=== PATIENT | female | born 1955 | race Caucasian/White ===

== ENCOUNTER → 2017-05-05 | Outpatient (REF) | payer OTHER ==
[2017-05-05 15:04] LABS: ALBUMIN 4.2 GM/DL (3.2-5.2); ALBUMIN/GLOBULIN RATIO 1.35 (1.00-1.93); ALKALINE PHOSPHATASE 54 U/L (45-117); ALT/SGPT 23 U/L (12-78); ANION GAP 10 MEQ/L (8-16); AST/SGOT 18 U/L (15-37); BILIRUBIN,TOTAL 0.6 MG/DL (0.2-1.0); BLOOD UREA NITROGEN 14 MG/DL (7-18); CARBON DIOXIDE LEVEL 27 MEQ/L (21-32); CHLORIDE LEVEL 102 MEQ/L (98-107); CHOLESTEROL LEVEL 248 MG/DL (<200); GLOMERULAR FILTRATION RATE > 60.0 (>45); GLUCOSE, FASTING 98 MG/DL (80-110); POTASSIUM SERUM 4.3 MEQ/L (3.5-5.1); SODIUM LEVEL 139 MEQ/L (136-145); TOTAL PROTEIN 7.3 GM/DL (6.4-8.2); TRIGLYCERIDES LEVEL 110 MG/DL (<150)
== END ==
LOC: M SFHCLACO 09:22
PROVIDERS: ATTEND Physician Assistant
DX: E78.00 Pure hypercholesterolemia, unspecified (principal); I10 Essential (primary) hypertension; E55.9 Vitamin D deficiency, unspecified

== ENCOUNTER → 2017-05-14 | Outpatient (CLI) | payer OTHER ==
--- NOTE | 2017-05-14 08:52 | REP ---
Abdominal aorta ultrasound: Abdominal Aortic Measurements are as follows: Proximal 2.5 cm AP at 2.3 cm TRV Renal Artery Level 2.1 cm AP 2.1 cm TRV Mid Aorta 1.7 cm AP 1.9 cm TRV Distal Aorta 1.6 cm AP 1.7 cm TRV R Iliac Artery 0.96 cm AP 0.8 cm TRV L Iliac Artery 0.99 cm AP 0.97 cm TRV Impression: There is no abdominal aortic aneurysm. Signed by Kentrell Alanis MD 05/14/2017 08:44 A
== END ==
LOC: M RAD 07:43
PROVIDERS: ATTEND Physician Assistant
DX: Z00.00 Encounter for general adult medical examination without abnormal findings (principal)

== ENCOUNTER → 2018-01-12 | Outpatient (REF) | payer OTHER ==
[2018-01-12 15:15] LABS: ALBUMIN 4.4 GM/DL (3.2-5.2); ALBUMIN/GLOBULIN RATIO 1.19 (1.00-1.93); ALKALINE PHOSPHATASE 55 U/L (45-117); ALT/SGPT 19 U/L (12-78); ANION GAP 6 MEQ/L (8-16); AST/SGOT 23 U/L (7-37); BILIRUBIN,TOTAL 0.6 MG/DL (0.2-1.0); BLOOD UREA NITROGEN 17 MG/DL (7-18); CALCIUM LEVEL 9.8 MG/DL (8.8-10.2); CARBON DIOXIDE LEVEL 30 MEQ/L (21-32); CHLORIDE LEVEL 103 MEQ/L (98-107); CHOLESTEROL LEVEL 270 MG/DL (<200); CHOLESTEROL RISK RATIO 2.432 (<5); CREATININE FOR GFR 0.79 MG/DL (0.55-1.30); GLOMERULAR FILTRATION RATE > 60.0 (>45); GLUCOSE, FASTING 88 MG/DL (70-100); HDL CHOLESTEROL 111 MG/DL (>40); LDL CHOLESTEROL 145.2 MG/DL (<100); NON-HDL-C 159 MG/DL; POTASSIUM SERUM 4.4 MEQ/L (3.5-5.1); SODIUM LEVEL 139 MEQ/L (136-145); TOTAL PROTEIN 8.1 GM/DL (6.4-8.2); TRIGLYCERIDES LEVEL 69 MG/DL (<150)
[2018-01-12 15:20] LABS: TOTAL 25(OH) VITAMIN D 36.6 NG/ML (30.0-100.0)
== END ==
LOC: M SFHCLACO 08:10
DX: I10 Essential (primary) hypertension (principal); E78.00 Pure hypercholesterolemia, unspecified; E55.9 Vitamin D deficiency, unspecified
CPT/HCPCS: 80053

== ENCOUNTER → 2018-04-29 | Outpatient (REF) | payer OTHER ==
[2018-05-01 14:10] LABS: HPV HYBRID CAPTURE II Negative (Negative)
== END ==
LOC: M SFHCWAGY 08:48
DX: Z12.72 Encounter for screening for malignant neoplasm of vagina (principal)

== ENCOUNTER → 2018-04-29 | Outpatient (CLI) | payer OTHER | LOC: M WHC 08:33 | DX: Z12.31 Encounter for screening mammogram for malignant neoplasm of breast (principal) | CPT/HCPCS: 77067 ==

== ENCOUNTER → 2018-04-29 | Outpatient (CLI) | payer OTHER | LOC: M WHC 08:23 | DX: Z13.820 Encounter for screening for osteoporosis (principal); Z78.0 Asymptomatic menopausal state | CPT/HCPCS: 77080 ==

== ENCOUNTER → 2019-05-02 | Outpatient (CLI) | payer MEDICARE ==
--- NOTE | 2019-05-02 09:31 | REPMRS ---
Patient History The patient states she had a clinical breast exam in 04/2019. Patient has history of basal cell skin cancer at age 63. Family history of prostate cancer in father, breast cancer in paternal aunt, pancreatic cancer in paternal aunt. 3D TOMOSYNTHESIS WAS PERFORMED. The Emily Cochran lifetime risk for breast cancer is 9.2%. Digital Woman Screen Mammo: May 02, 2019 - Exam #: [id number] Bilateral CC and MLO view(s) were taken. Technologist: Belen Aragon, Technologist Prior study comparison: April 29, 2018, bilateral digital woman screen mammo performed at [facility]. April 08, 2016, digital woman screen mammo performed at [facility]. FINDINGS: The breast tissue is heterogeneously dense. This may lower the sensitivity of mammography. There has been no change in the appearance of the mammogram from the prior studies. There is a moderate amount of residual fibroglandular tissue which is fairly symmetric. There is no interval development of dominant mass, areas of architectural distortion, or clustered microcalcification typical of malignancy. Assessment: BI-RADS/ACR category 1 mammogram. Negative Mammogram. Recommendation Routine screening mammogram in 1 year (for women over age 40). This mammogram was interpreted with the aid of an FDA-approved computer-aided dectection system. Electronically Signed By: Kentrell Martinez MD 05/02/19 [id number]
== END ==
LOC: M WHC 08:26
PROVIDERS: ATTEND Nurse Practitioner Family
DX: Z01.419 Encounter for gynecological examination (general) (routine) without abnormal findings (principal); Z12.31 Encounter for screening mammogram for malignant neoplasm of breast; Z85.828 Personal history of other malignant neoplasm of skin; Z80.42 Family history of malignant neoplasm of prostate
CPT/HCPCS: 77063; 77067; G0101

== ENCOUNTER → 2020-06-29 | Outpatient (CLI) | payer MEDICARE ==
--- NOTE | 2020-06-29 10:14 | REPMRS ---
Patient History The patient states she had a clinical breast exam in June 2020.Family history of prostate cancer in father, breast cancer in paternal aunt, pancreatic cancer in paternal aunt. 3D TOMOSYNTHESIS WAS PERFORMED. The Emily Rutledge lifetime risk for breast cancer is 8.8%. Volpara breast density c. Digital Woman Screen Mammo: June 29, 2020 - Exam #: [id number] Bilateral CC and MLO view(s) were taken. Technologist: Yesica Hernandez, Technologist Prior study comparison: May 02, 2019, bilateral digital woman screen mammo performed at [facility]. April 29, 2018, bilateral digital woman screen mammo performed at [facility]. FINDINGS: The breast tissue is heterogeneously dense. This may lower the sensitivity of mammography. There has been no change in the appearance of the mammogram from the prior studies. There is a moderate amount of residual fibroglandular tissue which is fairly symmetric. There is no interval development of dominant mass, areas of architectural distortion, or clustered microcalcification typical of malignancy. Assessment: BI-RADS/ACR category 1 mammogram. Negative Mammogram. Recommendation Routine screening mammogram in 1 year (for women over age 40). This mammogram was interpreted with the aid of an FDA-approved computer-aided dectection system. Electronically Signed By: Kentrell Martinez MD 06/29/20 [id number]
== END ==
LOC: M WHC 08:41
PROVIDERS: ATTEND Nurse Practitioner Family
DX: Z12.31 Encounter for screening mammogram for malignant neoplasm of breast (principal); Z80.42 Family history of malignant neoplasm of prostate

== ENCOUNTER → 2021-04-19 | Outpatient (REF) | payer MEDICARE ==
[2021-04-19 16:31] LABS: BLOOD UREA NITROGEN 17 MG/DL (7-18); CREATININE FOR GFR 0.86 MG/DL (0.55-1.30); GLUCOSE, FASTING 137 MG/DL (70-100)
[2021-04-19 16:32] LABS: ALBUMIN 3.9 GM/DL (3.2-5.2); ALT/SGPT 27 U/L (12-78); BILIRUBIN,TOTAL 0.4 MG/DL (0.2-1.0); CARBON DIOXIDE LEVEL 30 MEQ/L (21-32); CHLORIDE LEVEL 105 MEQ/L (98-107); GLOMERULAR FILTRATION RATE > 60.0 (>45); SODIUM LEVEL 139 MEQ/L (136-145); TOTAL PROTEIN 7.3 GM/DL (6.4-8.2)
[2021-04-19 17:38] LABS: BASO % 0.5 % (0.0-1.0); EOS # 0.2 10^3/uL (0.0-0.5); HEMATOCRIT 37.3 % (36.0-47.0); HEMOGLOBIN 12.2 g/dl (12.0-15.5); LYMPH # 3.4 10^3/uL (1.5-5.0); LYMPH % 45.5 % (24.0-44.0); MEAN CORPUSCULAR HEMOGLOBIN 30.4 pg (27.0-33.0); MEAN CORPUSCULAR HGB CONC 32.7 g/dl (32.0-36.5); MONO # 0.4 10^3/uL (0.0-0.8); MONO % 5.8 % (2.0-8.0); NEUTROPHILS # 3.3 10^3/uL (1.5-8.5); NEUTROPHILS % 45.1 % (36.0-66.0); PLATELET COUNT, AUTOMATED 196 10^3/uL (150-450); RED BLOOD COUNT 4.01 10^6/uL (4.00-5.40); WHITE BLOOD COUNT 7.4 10^3/uL (4.0-10.0)
== END ==
LOC: M SFHCADAM 13:36
PROVIDERS: ATTEND Family Medicine
DX: Z01.818 Encounter for other preprocedural examination (principal); H26.9 Unspecified cataract

== ENCOUNTER → 2022-01-16 | Outpatient (REF) | payer MEDICARE ==
[2022-01-16 13:36] LABS: ALT/SGPT 20 U/L (12-78); BILIRUBIN,TOTAL 0.5 MG/DL (0.2-1.0); BLOOD UREA NITROGEN 17 MG/DL (7-18); CALCIUM LEVEL 10.4 MG/DL (8.8-10.2); CARBON DIOXIDE LEVEL 28 MEQ/L (21-32); CHLORIDE LEVEL 103 MEQ/L (98-107); CHOLESTEROL LEVEL 254 MG/DL (<200); CHOLESTEROL RISK RATIO 2.288 (<5); GLOMERULAR FILTRATION RATE > 60.0 (>45); GLUCOSE, FASTING 96 MG/DL (70-100); HDL CHOLESTEROL 111 MG/DL (>40); LDL CHOLESTEROL 128 MG/DL (<100); NON-HDL-C 143 MG/DL; POTASSIUM SERUM 4.5 MEQ/L (3.5-5.1); SODIUM LEVEL 139 MEQ/L (136-145); TOTAL 25(OH) VITAMIN D 47.2 NG/ML (30.0-100.0); TOTAL PROTEIN 7.4 GM/DL (6.4-8.2); TRIGLYCERIDES LEVEL 74 MG/DL (<150)
== END ==
LOC: M SFHCADAM 08:11
PROVIDERS: ATTEND Physician Assistant
DX: I10 Essential (primary) hypertension (principal); E78.00 Pure hypercholesterolemia, unspecified; E55.9 Vitamin D deficiency, unspecified; Z79.899 Other long term (current) drug therapy

== ENCOUNTER → 2022-01-22 | Outpatient (CLI) | payer MEDICARE | LOC: M ADAMS 09:13 | PROVIDERS: ATTEND Physician Assistant | DX: M79.644 Pain in right finger(s) (principal) ==

== ENCOUNTER → 2022-02-26 | Outpatient (CLI) | payer MEDICARE | LOC: M WHC 07:40 | PROVIDERS: ATTEND Physician Assistant | DX: Z12.31 Encounter for screening mammogram for malignant neoplasm of breast (principal) ==

== ENCOUNTER → 2023-03-02 | Outpatient (CLI) | payer MEDICARE | LOC: M WHC 09:15 | PROVIDERS: ATTEND Nurse Practitioner Family | DX: Z12.31 Encounter for screening mammogram for malignant neoplasm of breast (principal) ==

== ENCOUNTER → 2024-03-08 | Outpatient (CLI) | payer MEDICARE | LOC: M WHC 09:25 | PROVIDERS: ATTEND Nurse Practitioner Family | DX: Z12.31 Encounter for screening mammogram for malignant neoplasm of breast (principal); R92.323 Mammographic fibroglandular density, bilateral breasts ==

== ENCOUNTER → 2024-12-28 | Outpatient (REF) | payer MEDICARE ==
[2024-12-28 15:01] LABS: BASO # 0.1 10^3/uL (0.0-0.2); BASO % 1.1 % (0.0-1.0); EOS # 0.3 10^3/uL (0.0-0.5); HEMOGLOBIN 12.5 g/dl (12.0-15.5); LYMPH # 3.5 10^3/uL (1.5-5.0); LYMPH % 55.6 % (24.0-44.0); MEAN CORPUSCULAR HEMOGLOBIN 31.8 pg (27.0-33.0); MEAN CORPUSCULAR HGB CONC 32.9 g/dl (32.0-36.5); MEAN CORPUSCULAR VOLUME 96.7 fl (80.0-96.0); MONO # 0.5 10^3/uL (0.0-0.8); MONO % 7.2 % (2.0-8.0); NEUTROPHILS % 31.9 % (36.0-66.0); PLATELET COUNT, AUTOMATED 235 10^3/uL (150-450); RED BLOOD COUNT 3.93 10^6/uL (4.00-5.40); WHITE BLOOD COUNT 6.3 10^3/uL (4.0-10.0)
[2024-12-28 15:29] LABS: ALBUMIN 4.4 G/DL (3.2-5.2); BILIRUBIN,TOTAL 0.6 MG/DL (0.3-1.2); CALCIUM LEVEL 9.9 MG/DL (8.3-10.6); CHOLESTEROL RISK RATIO 2.3 (<5); CREATININE FOR GFR 0.82 MG/DL (0.55-1.30); GLOMERULAR FILTRATION RATE 76.9 (>39); HDL CHOLESTEROL 110.7 MG/DL (>40); LDL CHOLESTEROL 128.3 MG/DL (<100); NON-HDL-C 144.3 MG/DL; THYROID STIMULATING HORMONE 3.385 uIU/ML (0.55-4.78); TOTAL PROTEIN 7.8 G/DL (5.7-8.2)
[2024-12-31 10:28] LABS: LDL DIRECT 133 mg/dL (<100)
== END ==
LOC: M LABDRWAD 14:41
PROVIDERS: ATTEND Internal Medicine Cardiovascular Disease
DX: Z01.818 Encounter for other preprocedural examination (principal); R00.2 Palpitations; E78.2 Mixed hyperlipidemia; R01.1 Cardiac murmur, unspecified; I10 Essential (primary) hypertension; I44.7 Left bundle-branch block, unspecified; I38 Endocarditis, valve unspecified

== ENCOUNTER → 2024-12-28 | Outpatient (REF) | payer MEDICARE ==
[2024-12-28 14:11] LABS: ALBUMIN 4.3 G/DL (3.2-5.2); BILIRUBIN,TOTAL 0.6 MG/DL (0.3-1.2); CALCIUM LEVEL 10.3 MG/DL (8.3-10.6); CHOLESTEROL RISK RATIO 2.28 (<5); CREATININE FOR GFR 0.81 MG/DL (0.55-1.30); HDL CHOLESTEROL 111.1 MG/DL (>40); LDL CHOLESTEROL 126.1 MG/DL (<100); NON-HDL-C 142.9 MG/DL; POTASSIUM SERUM 4.9 MMOL/L (3.5-5.1); TOTAL PROTEIN 7.6 G/DL (5.7-8.2)
[2024-12-28 14:12] LABS: BASO % 0.6 % (0.0-1.0); EOS # 0.3 10^3/uL (0.0-0.5); HEMATOCRIT 38.4 % (36.0-47.0); HEMOGLOBIN 12.6 g/dl (12.0-15.5); LYMPH # 3.5 10^3/uL (1.5-5.0); LYMPH % 56.1 % (24.0-44.0); MEAN CORPUSCULAR HEMOGLOBIN 31.3 pg (27.0-33.0); MEAN CORPUSCULAR HGB CONC 32.8 g/dl (32.0-36.5); MEAN CORPUSCULAR VOLUME 95.5 fl (80.0-96.0); MONO # 0.5 10^3/uL (0.0-0.8); MONO % 7.4 % (2.0-8.0); NEUTROPHILS % 31.9 % (36.0-66.0); PLATELET COUNT, AUTOMATED 231 10^3/uL (150-450); RED BLOOD COUNT 4.02 10^6/uL (4.00-5.40); WHITE BLOOD COUNT 6.2 10^3/uL (4.0-10.0)
[2024-12-28 14:13] LABS: THYROID STIMULATING HORMONE 3.217 uIU/ML (0.55-4.78)
== END ==
LOC: M SFHCADAM 08:05
PROVIDERS: ATTEND Family Medicine
DX: Z00.00 Encounter for general adult medical examination without abnormal findings (principal); Z79.899 Other long term (current) drug therapy

== ENCOUNTER → 2025-03-08 | Outpatient (CLI) | payer MEDICARE | LOC: M WHC 10:01 | PROVIDERS: ATTEND Family Medicine | DX: Z53.9 Procedure and treatment not carried out, unspecified reason (principal) ==

== ENCOUNTER → 2025-03-09 | Outpatient (CLI) | payer MEDICARE | LOC: M WHC 08:39 | PROVIDERS: ATTEND Family Medicine | DX: Z12.31 Encounter for screening mammogram for malignant neoplasm of breast (principal); Z13.820 Encounter for screening for osteoporosis; R92.323 Mammographic fibroglandular density, bilateral breasts; M85.89 Other specified disorders of bone density and structure, multiple sites ==

== ENCOUNTER → 2025-05-24 | Outpatient (REF) | payer MEDICARE ==
[2025-05-24 15:22] LABS: BASO # 0.0 10^3/uL (0.0-0.2); BASO % 0.7 % (0.0-1.0); EOS # 0.3 10^3/uL (0.0-0.5); EOS % 5.5 % (0.0-3.0); LYMPH # 2.4 10^3/uL (1.5-5.0); LYMPH % 40.3 % (24.0-44.0); MONO # 0.6 10^3/uL (0.0-0.8); MONO % 10.7 % (2.0-8.0); NEUTROPHILS # 2.6 10^3/uL (1.5-8.5); NEUTROPHILS % 42.6 % (36.0-66.0); PLATELET COUNT, AUTOMATED 224 10^3/uL (150-450)
[2025-05-24 15:56] LABS: CPK CREATINE PHOSPHOKINASE 118.0 U/L (34-145)
[2025-05-24 15:57] LABS: ALT/SGPT 26.0 U/L (7.0-40); AST/SGOT 33.0 U/L (<34); CALCIUM LEVEL 9.9 MG/DL (8.3-10.6); CARBON DIOXIDE LEVEL 27.0 MMOL/L (20-31); CHLORIDE LEVEL 101.0 MMOL/L (98-107); CHOLESTEROL LEVEL 199.0 MG/DL (<200); CHOLESTEROL RISK RATIO 1.87 (<5); CREATININE FOR GFR 0.81 MG/DL (0.55-1.30); GLOMERULAR FILTRATION RATE 77.6 (>39); LDL CHOLESTEROL 81.5 MG/DL (<100); NON-HDL-C 92.9 MG/DL; POTASSIUM SERUM 4.6 MMOL/L (3.5-5.1); SODIUM LEVEL 137.0 MMOL/L (136-145); TRIGLYCERIDES LEVEL 57.0 MG/DL (<150)
[2025-05-26 16:08] LABS: LDL DIRECT 78 mg/dL (<100)
== END ==
LOC: M LABDRWAD 13:09
PROVIDERS: ATTEND Internal Medicine Cardiovascular Disease
DX: Z01.818 Encounter for other preprocedural examination (principal); R00.2 Palpitations; E78.2 Mixed hyperlipidemia; I10 Essential (primary) hypertension; I44.7 Left bundle-branch block, unspecified; I38 Endocarditis, valve unspecified